=== PATIENT | female | born 1995 | race African-American/Black ===

== ENCOUNTER 2021-07-27 03:50 | Emergency (ER) | payer BC ==
[~2021-07-27] VITALS: Ht 157.5 cm; Wt 45.4 kg
[2021-07-27 04:00] VITALS: BP 107/65
--- NOTE | 2021-07-27 04:00 | NUR ---
BIBSELF C/O SOB. UPON TRIAGE SPO2 100% ON RA.
--- NOTE | 2021-07-27 04:07 | NUR ---
Patient discharged to home in stable condition. Written and verbal after care instructions given. Patient verbalizes understanding of instruction. PT ambulatory with a steady gait
== END 2021-07-27 04:09 | disposition home or self-care (01) ==
LOC: ER 03:50
DX: U07.1 COVID-19 (principal)

== ENCOUNTER 2021-11-08 12:47 | Emergency (ER) | payer BC ==
[~2021-11-08] VITALS: Ht 157.5 cm; Wt 52.2 kg
--- NOTE | 2021-11-08 12:57 | NUR ---
BIB FAMILY SAYING SHE'S HAVING A MANIC EPISODE. LITHIUM,RISPERIDONE AND ABILIFY DOESN'T WORK ACCORDING TO HER. VITALS ARE WITHIN NORMAL LIMITS. AWAITING MD HARRY.
--- NOTE | 2021-11-08 13:12 | NUR ---
PT UNABLE TO PROVIDE URINE AT THIS TIME, SAMPLE CUP PROVIDED.
--- NOTE | 2021-11-08 13:22 | NUR ---
COVID TEST COLLECTED AND SENT
--- NOTE | 2021-11-08 13:25 | NUR ---
LAB AT BEDSIDE
[2021-11-08 13:50] LABS: BASOPHILS % (AUTO) 0.1 % (0.0-2.0); HEMATOCRIT 41 % (33-45); HEMOGLOBIN 13.3 g/dL (11.5-14.8); LYMPHOCYTES # (AUTO) 0.7 K/uL (0.8-4.8); LYMPHOCYTES % (AUTO) 6.3 % (20.0-44.0); MEAN CORPUSCULAR HGB CONC 33 g/dl (31.0-36.0); MEAN CORPUSCULAR VOLUME 86 fL (82-100); MONOCYTES # (AUTO) 0.5 K/uL (0.1-1.30); MONOCYTES % (AUTO) 4.1 % (2.0-12.0); NEUTROPHILS # (AUTO) 10.4 K/uL (1.8-8.9); NEUTROPHILS % (AUTO) 89.5 % (43.0-81.0); PLATELET COUNT (AUTO) 267 K/uL (150-450); RED BLOOD CELL COUNT(AUTO) 4.72 MIL/uL (4.0-5.2); WHITE BLOOD COUNT (AUTO) 11.6 K/uL (4.3-11.0)
[2021-11-08 14:01] LABS: CALCIUM, SERUM 9.1 mg/dL (8.5-10.1); CARBON DIOXIDE 25 mmol/L (21-32); CHLORIDE 106 mmol/L (98-107); CREATININE 0.8 mg/dL (0.6-1.3); GLUCOSE 94 mg/dL (74-106); POTASSIUM 3.7 mmol/L (3.5-5.1); SODIUM SERUM 141 mmol/L (136-145); UREA NITROGEN, BLOOD 9 mg/dL (7-18)
[2021-11-08 14:09] LABS: ALANINE AMINOTRANSFERASE 21 U/L (12-78); ALCOHOL, BLOOD < 3 mg/dL (0-0); ALKALINE PHOSPHATASE 52 U/L (46-116); ASPARTATE AMINOTRANSFERASE 20 U/L (15-37); BILIRUBIN,DIRECT 0.2 mg/dL (0.0-0.2); BILIRUBIN,TOTAL 0.5 mg/dL (0.2-1.0); TOTAL PROTEIN, SERUM 8.7 g/dL (6.4-8.2)
[2021-11-08 14:11] LABS: ACETAMINOPHEN 0 ug/ml (10-30)
[2021-11-08] MEDS ORDERED: OLANZAPINE 5 MG TABLET ONE (14:27)
[2021-11-08] MEDS: OLANZAPINE ZYDIS 5 MG TAB.RAPDIS PO ONE (14:30)
--- NOTE | 2021-11-08 14:50 | NUR ---
URINE COLLECTED AND SENT
--- NOTE | 2021-11-08 14:56 | NUR ---
OUTPLACEMENT CONSULTANT AT BED SIDE
[2021-11-08 16:33] LABS: BILIRUBIN,URINE NEGATIVE (NEGATIVE); COLOR,URINE YELLOW (YELLOW); LEUKOCYTE ESTERASE ,URINE NEGATIVE (NEGATIVE); NITRITE, URINE NEGATIVE (NEGATIVE); PROTEIN,URINE 30 mg/dl (NEGATIVE); UGLUCOSE NEGATIVE (NEGATIVE); UROBILINOGEN,URINE 0.2 EU/dL (0.2)
--- NOTE | 2021-11-08 16:47 | NUR ---
PER BRIANA WHITE, NATURAL [employer] TECHNICIAN, DANIEL, WILL BE HERE AT 1900.
--- NOTE | 2021-11-08 16:49 | NUR ---
SS consult: SS Consult requested for pt. in the ED with manic symptoms. Pt. is a 26-year-old female who was admitted to the ED on 11/08/2021. Pt. is hyper-scientology at this time, perserverating on prayer and not answering questions. Pt. appears well-groomed. Pt. has loud and clear speech. Pt. maintained her eyes closed during interview. Patient was not redirectable. Pt.'s friend Frederick ([phone]) is at bedside. SW left mental health resources at bedside. Per EMR, pt. was administered 5 mg Zyprexa at 1430. SW discussed with Dr. Cruz and called Shafting Cleaner, Keely [phone] who stated she will be here at 7 pm. Counseling--Outpatient [facility] [address], [place] [address] (Specializes in in-depth psychotherapy for emotional distress: anxiety, depression, interpersonal conflicts, life transitions, childhood abuse) [facility] [address] [place] [address] (Assist with solving problem marital difficulties, separation & divorce, aging parents, & grief, chronic & terminal illness) [facility] [address] [place] [address] (Deal with loss & grief, anxiety, marital difficulties) [facility] [address], [address] [place] [address] (Provide in-home mental services to people who are incapable of leaving their homes) [facility] [address] [place] [address] [facility] [address] [place], [place] [id number] PSYCHIATRIC OUTPATIENT SERVICES [facility] Partial Hospitalization and Intensive Outpatient Program ([facility] Care and [place] Only) [address] [facility] [place] [address]; [phone] [facility] Partial Hospitalization and Outpatient Program [address] [place] [address]; [phone] [facility] [id number] [place], [place] [phone] [facility] Partial Hospitalization and Outpatient [address] [place], [place] ; [phone] ;[phone] [facility] [address] [place] [address] Mental Health Services [facility] [address] [place] [address] Services: Outpatient therapy for children, teens, young adults, adults, older adults, and families; Psychiatric services, medication support [place] Crisis and Hotline Telephone Numbers: 24-Hour service unless stated [place] Mental Health/Crisis Line........[phone] Suicide Prevention Center (24 Hours).......[phone] Suicide Prevention Crisis Center.......[phone] (24 Hours) Alcoholics Anonymous (24 Hours)..........[phone] National Crisis Hotlines: Alcohol and Drug Helpline - Provides referrals to local facilities where adolescents and adults can seek help. Brief intervention. [place] Helpline [facility] [place] [employer] 2-688-189-[place] National Youth Crisis Hotline [facility] Provides free information on specific disorders, referral directory to mental health providers, national directory of local mental health associations (M-F, 9-5 EST) National [place] of Mental Health Information Line: Provide sinformation and literature on mental illness by disorder-for professionals and general public.
[2021-11-08 16:51] LABS: BACTERIA,URINE RARE /HPF (None Seen); RBC,URINE 0-2 /HPF (0-2); WBC,URINE 0-2 /HPF (0-3)
[2021-11-08 16:52] LABS: MUCUS,URINE Many /LPF (None Seen)
--- NOTE | 2021-11-08 20:00 | NUR ---
SANDRA FROM [facility] CALLED AND STATED PT CAN NOT BE ACCEPTED. NO FEMALE BED AVAILABLE.
[2021-11-08] MEDS ORDERED: LORAZEPAM INJ 2 MG/ML VIAL ONE (20:06)
[2021-11-08 20:11] VITALS: BP 119/87
[2021-11-08] MEDS: LORAZEPAM INJ 2 MG/ML VIAL IM ONE (20:11)
--- NOTE | 2021-11-08 20:15 | NUR ---
PT COMFORTABLE LYING IN BED. ALL NEEDS MET AT THIS TIME. ADMINIDERED ATIVAN 2MG IM PER MD'S ORDERS. PT STATED SHE HAS "RACING THOUGHTS". VSS. WILL CONTINUE TO MONITOR CLOSELY.
--- NOTE | 2021-11-08 20:46 | NUR ---
PT ACCEPTED TO [facility] BY DR PATTON. BUILDING I, INTAKE. REPORT GIVEN
--- NOTE | 2021-11-08 20:49 | NUR ---
[facility] CALLED FOR TRANSPORT. ETA 75-90 MINUTESS.
--- NOTE | 2021-11-08 22:26 | NUR ---
[facility] AT BEDSIDE FOR TRANSPORT TO [facility].
== END 2021-11-08 23:05 ==
LOC: ER 12:54
DX: F31.2 Bipolar disorder, current episode manic severe with psychotic features (principal); Z20.822 Contact with and (suspected) exposure to COVID-19
CPT/HCPCS: 99285; 96372; 85025; 80048; 80076; 84703; 81001; 36415; 87426; 80143; 80320; 80307; J2060; C9803; G0480

== ENCOUNTER 2023-02-23 21:35 | Emergency (ER) | payer BC, MEDICAID ==
[~2023-02-23] VITALS: Ht 157.5 cm; Wt 52.2 kg
[2023-02-23] MEDS ORDERED: IBUPROFEN 600 MG TABLET PO ONE (22:00)
[2023-02-23] MEDS ORDERED: IBUPROFEN 600 MG TABLET ONE (22:05)
[2023-02-23] MEDS ORDERED: IBUP-1955 PO (22:57)
[2023-02-23 23:05] VITALS: BP 111/86; TEMP 98.2; O2SAT 100
== END 2023-02-23 23:06 | disposition home or self-care (01) ==
LOC: ER 21:39
DX: S63.612A Unspecified sprain of right middle finger, initial encounter (principal); F31.9 Bipolar disorder, unspecified; Z60.2 Problems related to living alone; W23.0XXA Caught, crushed, jammed, or pinched between moving objects, initial encounter; Y93.89 Activity, other specified; Y92.89 Other specified places as the place of occurrence of the external cause; Y99.8 Other external cause status
CPT/HCPCS: 73130-TC